=== PATIENT | female | born 1975 | race African-American/Black ===

== ENCOUNTER 2018-04-27 13:09 | Inpatient (IN) | payer OTHER ==
[2018-04-27 14:11] VITALS: BMI 31.3
--- NOTE | 2018-04-27 18:27 | HP ---
CIWA Score - CIWA Score Nausea/Vomitin-Mild Nausea/No Vomiting Muscle Tremors: 2 Anxiety: 2 Agitation: 1-Slight > Activity Paroxysmal Sweats: 1-Minimal Palms Moist Orientation: 0-Oriented Tacttile Disturbances: 2-Mild Itch/Numbness/Burn Auditory Disturbances: 0-None Visual Disturbances: 0-None Headache: 3-Moderate CIWA-Ar Total Score: [address] [facility] - HPI Chief Complaint: ETOH withdrawal symptoms. Allergies/Adverse Reactions: Allergies Allergy/AdvReac Type Severity Reaction Status Date / Time seafood Allergy Intermediate Hives Uncoded 04/27/18 17:05 History of Present Illness: Patient presents for ETOH withdrawal symptoms. Patient started drinking at age 19. Last drink was this morning. Drinks 1 pint and 1/2 pack of beer daily. Denies hx of seizures. Patient also sniffs cocaine. 1-2 bags weekly. Last time she sniffed was one week ago. PMH includes HTN and Bipolar disorder. Last detox attempt was here at [facility] 2015. Denies SI/HI and suicide attempts. Exam Limitations: No Limitations - Ebola screening Have you traveled outside of the country in the last 21 days: No Have you had contact with anyone from an Ebola affected area: No Have you been sick,other than usual withdrawal symptoms: No Do you have a fever: No - Review of Systems Constitutional: Chills, Night Sweats, Changes in sleep EENT: denies: Blurred Vision, Recent change in vision, Throat Pain Respiratory: denies: Cough, Shortness of Breath Cardiac: denies: Chest Pain, Edema, Lightheadedness GI: reports: Diarrhea, Nausea, Poor Appetite, Poor Fluid Intake : reports: Frequency. denies: Flank Pain Musculoskeletal: reports: Joint Pain. denies: Muscle Pain Integumentary: denies: Change in Color, Flushing Neuro: reports: Headache, Tremors Endocrine: denies: Excessive Sweating, Flushing Hematology: denies: Anemia Psychiatric: reports: Orientated x3, Anxious, Depressed Patient History - Patient Medical History Hx Anemia: No Hx Asthma: Yes (Pt is MDI) Hx Chronic Obstructive Pulmonary Disease (COPD): No Hx Cancer: No Hx Cardiac Disorders: No Hx Congestive Heart Failure: No Hx Hypertension: No Hx Hypercholesterolemia: No Hx Pacemaker: No HX Cerebrovascular Accident: No Hx Seizures: No Hx Dementia: No Hx Diabetes: No Hx Gastrointestinal Disorders: No Hx Liver Disease: No Hx Genitourinary Disorders: No Hx Sexually Transmitted Disorders: No Hx Renal Disease (ESRD): No Hx Thyroid Disease: No Hx Human Immunodeficiency Virus (HIV): No Hx Hepatitis C: No Hx Depression: No Hx Suicide Attempt: No Hx Bipolar Disorder: Yes Hx Schizophrenia: Yes - Patient Surgical History Past Surgical History: Yes Hx Neurologic Surgery: No Hx Cataract Extraction: No Hx Cardiac Surgery: No Hx Lung Surgery: No Hx Breast Surgery: No Hx Breast Biopsy: No Hx Abdominal Surgery: No Hx Appendectomy: No Hx Cholecystectomy: No Hx Genitourinary Surgery: No Hx Section: Yes (1994) Hx Orthopedic Surgery: No Hx Hysterectomy: No Anesthesia Reaction: No - PPD History Previous Implant?: Yes Documented Results: Negative w/o proof Date: 02/28/16 PPD to be Administered?: Yes - Reproductive History Last Menstrual Period: 04/25/18 Patient : No - Smoking Cessation Smoking history: Former smoker Have you smoked in the past 12 months: No Aproximately how many cigarettes per day: 0 If you are a former smoker, when did you quit?: WHEN SHE WAS 20 YRS. OLD Hx Chewing Tobacco Use: No Initiated information on smoking cessation: No - Substance & Tx. History Hx Alcohol Use: Yes Hx Substance Use: Yes Substance Use Type: Alcohol, Cocaine Hx Substance Use Treatment: Yes - Substances Abused Alcohol Route: Oral Frequency: Daily Amount used: Beer 3 cans, Vodka 1/2 pint Age of first use: 19 Date of Last Use: 04/27/18 Cocaine Route: Inhalation Frequency: 1-2 times per week Amount used: $20 Age of first use: 39 Date of Last Use: 04/23/18 Family Disease History - Family Disease History Family Disease History: Heart Disease: Father, Mother Admission Physical Exam [facility] - Vital Signs Vital Signs: Vital Signs - 24 hr 04/27/18 14:10 Temperature 97 F L Pulse Rate 120 H Respiratory 17 Rate Blood Pressure 138/84 - Physical General Appearance: Yes: No Apparent Distress, Nourished, Appropriately Dressed , Irritable, Anxious HEENTM: Yes: EOMI, Hearing grossly Normal, Normal ENT Inspection, Normocephalic , Normal Voice, SHEFALI, Pharynx Normal Respiratory: Yes: Chest Non-Tender, Lungs Clear, Normal Breath Sounds, No Respiratory Distress, No Accessory Muscle Use Neck: Yes: No masses,lesions,Nodules, Supple Breast: Yes: Breast Exam Deferred Cardiology: Yes: Regular Rhythm, Regular Rate, S1, S2 Abdominal: Yes: Normal Bowel Sounds, Non Tender, Soft Genitourinary: Yes: Frequency Back: Yes: Normal Inspection. No: Muscle Spasm Musculoskeletal: Yes: full range of Motion, Gait Steady, Joint Stiffness Extremities: Yes: Normal Inspection, Normal Range of Motion, Non-Tender, Tremors Neurological: Yes: bedspring assembler II-XII NML intact, Fully Oriented, Alert, Motor Strength 5/5, Depressed Affect Integumentary: Yes: Normal Color, Warm, Moist Lymphatic: Yes: Within Normal Limits - Diagnostic (1) HTN (hypertension) Current Visit: Yes Status: Acute Qualifiers: Hypertension type: essential hypertension Qualified Code(s): I10 - Essential (primary) hypertension (2) Alcohol dependence with uncomplicated withdrawal Current Visit: Yes Status: Acute (3) Paranoid schizophrenia Current Visit: Yes Status: Chronic (4) Bipolar disorder Current Visit: Yes Status: Chronic Cleared for Admission [facility] - Detox or Rehab [facility] Level of Care: Medically Managed Detox Regimen/Protocol: Librium [facility] Breath Alcohol Content Breath Alcohol Content: 0.015 Urine Pregancy Test - Result Urine Test Results: Negative- NO Line Present Urine Drug Screen - Results Drug Screen Negative: No Urine Drug Screen Results: JESSIE-Cocaine, TCA-Tricyclic Antidepress
[2018-04-27] MEDS ORDERED: chlordiazePOXIDE HCL 25 MG CAPSULE PO PRN (18:32)
[2018-04-27] MEDS ORDERED: ALBUTEROL SO4 8 GM HFA INHALER IH PRN (18:32)
[2018-04-27] MEDS ORDERED: P-EPHED 60MG/TRIPROLIDI 2.5MG TABLET PO PRN (18:33)
[2018-04-27] MEDS ORDERED: hydrOXYzine PAMOATE 50 MG CAPSULE (FP) PO PRN (18:33)
[2018-04-27] MEDS ORDERED: MENTHOL/PHENOL 1 EACH UD MM PRN (18:33)
[2018-04-27] MEDS ORDERED: guaiFENesin/D-METHORPHAN HB 10 ML UNIT-DOSE CUPS PO PRN (18:33)
[2018-04-27] MEDS ORDERED: MAGNESIUM HYDROX 2400MG/30ML ORAL SUSPENSION 30 ML CUP PO PRN (18:33)
[2018-04-27] MEDS ORDERED: MAGNESIUM CITRATE 300 ML BOTTLE PO PRN (18:33)
[2018-04-27] MEDS ORDERED: MAG HYDROX/AL HYDROX/SIMETH 30 ML UNIT-DOSE CUP PO PRN (18:33)
[2018-04-27] MEDS ORDERED: MELATONIN 5 MG TABLETS PO PRN (22:00)
[2018-04-27] MEDS: chlordiazePOXIDE HCL 25 MG CAPSULE PO SCH (22:20)
[2018-04-27] MEDS: THIAMINE HCL 100 MG TABLET (FP) PO SCH (22:20)
[2018-04-28 01:11] LABS: URINE APPEARANCE CLOUDY; URINE GLUCOSE (UA) NEGATIVE (NEGATIVE); URINE KETONE TRACE (NEGATIVE); URINE LEUK ESTERASE NEGATIVE (NEGATIVE); URINE NITRITE POSITIVE (NEGATIVE)
[2018-04-28 01:27] LABS: URINE COLOR DK YELLOW; URINE PROTEIN 2+ (NEGATIVE)
[2018-04-28 01:33] LABS: EPI CELLS MANY /HPF (FEW); URINE HYALINE CAST 269 /lpf; URINE MUCUS MANY
[2018-04-28] MEDS: chlordiazePOXIDE HCL 25 MG CAPSULE PO SCH ×4 (05:26→23:10)
--- NOTE | 2018-04-28 08:54 | CONSULT ---
[facility] Psychiatric Consult - Data Date of interview: 04/28/18 Admission source: [facility] Identifying data: This is a 42 years old female with history of Schizophrenia, psychiatric hospitalizations history, is here due to Alcohol withdrawal symptoms , seeking for detox Substance Abuse History: Smoking history: Former smoker. Have you smoked in the past 12 months: No. Aproximately how many cigarettes per day: 0. If you are a former smoker, when did you quit?: WHEN SHE WAS 20 YRS. OLD. Hx Chewing Tobacco Use: No. Initiated information on smoking cessation: No. - Substance & Tx. History. Hx Alcohol Use: Yes. Hx Substance Use: Yes. Substance Use Type : Alcohol, Cocaine. Hx Substance Use Treatment: Yes. - Substances Abused. Alcohol. Route: Oral. Frequency: Daily. Amount used: Beer 3 cans, Vodka 1/2 pint. Age of first use: 19. Date of Last Use: 04/27/18. Cocaine. Route: Inhalation. Frequency: 1-2 times per week. Amount used: $20. Age of first use : 39. Date of Last Use: 04/23/18 Medical History: HTN, Asthma Psychiatric History: Patient reports history of Schizophrenia, reports most recent psychiatric admission for safety on 2 years ago at [facility]. Current medications are: Seroquel 200mg po bid. Risperdal 2mg poqd Physical/Sexual Abuse/Trauma History: Denies Additional Comment: Seroquel 200mg po bid. Risperdal 2mg poqd Mental Status Exam - Mental Status Exam Alert and Oriented to: Person Cognitive Function: Fair Patient Appearance: Unkempt Mood: Suspicious Affect: Mood Congruent Patient Behavior: Cooperative Speech Pattern: Delayed Voice Loudness: Mildly Soft/Quiet Thought Process: Goal Oriented Thought Disorder: Being Controlled Hallucinations: Denies Suicidal Ideation: Denies Homicidal Ideation: Denies Insight/Judgement: Fair Sleep: Difficulty falling asleep Appetite: Weight gain Muscle strength/Tone: Normal Gait/Station: Normal Additional Comments: Seroquel 200mg po bid. Risperdal 2mg poqd Psychiatric Findings - Problem List (Quinn 1, 2,3) (1) Alcohol dependence with uncomplicated withdrawal Current Visit: Yes Status: Acute (2) Bipolar disorder Current Visit: Yes Status: Chronic (3) Paranoid schizophrenia Current Visit: Yes Status: Chronic (4) Alcohol dependence Current Visit: No Status: Active (5) Paranoid schizophrenia, subchronic condition Current Visit: No Status: Acute (6) Asthma Current Visit: No Status: Chronic - Initial Treatment Plan Initial Treatment Plan: Seroquel 200mg po bid. Risperdal 2mg poqd
--- NOTE | 2018-04-28 09:09 | PN ---
[facility] CIWA - CIWA Score Nausea/Vomitin-Mild Nausea/No Vomiting Muscle Tremors: 4-Moderate,w/Arms Extend Anxiety: 4-Mod. Anxious/Guarded Agitation: 3 Paroxysmal Sweats: 1-Minimal Palms Moist Orientation: 0-Oriented Tacttile Disturbances: 0-None Auditory Disturbances: 0-None Visual Disturbances: 0-None Headache: 0-None Present CIWA-Ar Total Score: 13 BHS Progress Note (SOAP) Subjective: diarrhea sweat tremor anxiety restlessness trouble sleep at night Objective: 04/28/18 09:10 Vital Signs Temperature 96.7 F L 04/28/18 06:29 Pulse Rate 99 H 04/28/18 06:29 Respiratory Rate 18 04/28/18 06:29 Blood Pressure 122/90 04/28/18 06:29 O2 Sat by Pulse Oximetry (%) Laboratory Last Values Urine Color Dk yellow 04/27/18 22:40 Urine Appearance Cloudy 04/27/18 22:40 Urine pH 5.0 (5.0-8.0) 04/27/18 22:40 Ur Specific [place] 1.029 (1.001-1.035) 04/27/18 22:40 Urine Protein 2+ (NEGATIVE) H 04/27/18 22:40 Urine Glucose (UA) Negative (NEGATIVE) 04/27/18 22:40 Urine Ketones Trace (NEGATIVE) H 04/27/18 22:40 Urine Blood 2+ (NEGATIVE) H 04/27/18 22:40 Urine Nitrite Positive (NEGATIVE) 04/27/18 22:40 Urine Bilirubin 4.0 (<2.0 mg/dL) 04/27/18 22:40 Urine Urobilinogen 2.0 mg/dL (0.2-1.0) H 04/27/18 22:40 Ur Leukocyte Esterase Negative (NEGATIVE) 04/27/18 22:40 Urine WBC (Auto) 8 /hpf (3-5) 04/27/18 22:40 Urine RBC (Auto) 15 /hpf (0-3) 04/27/18 22:40 Ur Epithelial Cells Many /HPF (FEW) 04/27/18 22:40 Hyaline Casts 269 /lpf 04/27/18 22:40 Urine Mucus Many 04/27/18 22:40 lab noted Assessment: 04/28/18 09:10 withdrawal sx Plan: continue detox increase oral fluid personal hygiene
[2018-04-28] MEDS ORDERED: LURASIDONE HCL 40 MG TABLET PO SCH (10:00)
[2018-04-28] MEDS: PRENATAL VITAMINS W/ FOLIC ACID TABLET (FP) PO SCH (10:16)
[2018-04-28] MEDS: amLODIPine BESYLATE 5 MG TABLET (FP) PO SCH (10:16)
[2018-04-28] MEDS: LOPERAMIDE HCL 2 MG CAPSULE PO PRN (10:16)
[2018-04-28 10:51] LABS: HEMOGLOBIN 12.2 GM/dL (10.7-15.3); MCH 32.1 pg (25.7-33.7); MEAN CELL VOLUME 94.3 fl (80-96); MEAN PLT VOLUME 7.7 fl (7.5-11.1); PLATELET COUNT 284 K/MM3 (134-434); RBC 3.81 M/mm3 (3.60-5.2); RDW 19.7 % (11.6-15.6); WHITE BLOOD COUNT 5.2 K/mm3 (4.0-10.0)
[2018-04-28 11:31] LABS: CHLORIDE 100 mmol/L (98-107); POTASSIUM 3.4 mmol/L (3.5-5.1); SODIUM 132 mmol/L (136-145)
[2018-04-28 11:38] LABS: ALK PHOS 89 U/L (45-117); ANION GAP 12 MMOL/L (8-16); BILIRUBIN,TOTAL 1.2 mg/dL (0.2-1.0); BLOOD UREA NITROGEN 8 mg/dL (7-18); CALCIUM 9.5 mg/dL (8.5-10.1); CO2 20 mmol/L (21-32); CREATININE 1.6 mg/dL (0.55-1.02); GLUCOSE,RANDOM 108 mg/dL (74-106); SGOT/AST 68 U/L (15-37); SGPT/ALT 34 U/L (12-78); TOT PROT 8.7 g/dl (6.4-8.2)
--- NOTE | 2018-04-28 12:32 | EKG ---
Test Reason : Blood Pressure : / mmHG Vent. Rate : 116 BPM Atrial Rate : 116 BPM P-R Int : 126 ms QRS Dur : 082 ms QT Int : 302 ms P-R-T Axes : 056 048 041 degrees QTc Int : 419 ms SINUS TACHYCARDIA OTHERWISE NORMAL ECG NO PREVIOUS ECGS AVAILABLE Confirmed by NORY TAYLOR, SHIN ([id number]) on 04/28/2018 12:31:59 PM Referred By: Confirmed By:SHIN CUETO MD
[2018-04-28] MEDS: risperiDONE 2 MG TABLET PO SCH (12:35)
[2018-04-28] MEDS: ACETAMINOPHEN 325 MG TABLET (FP) PO PRN (17:31)
[2018-04-28] MEDS ORDERED: QUEtiapine FUMARATE 100 MG TABLET (FP) PO SCH (22:00)
[2018-04-28] MEDS ORDERED: traZODone HCL 50 MG TABLET (FP) PO SCH (22:00)
[2018-04-28] MEDS: QUEtiapine FUMARATE 200 MG TABLET PO SCH (23:11)
[2018-04-28] MEDS: THIAMINE HCL 100 MG TABLET (FP) PO SCH (23:12)
[2018-04-29] MEDS: chlordiazePOXIDE HCL 25 MG CAPSULE PO SCH ×3 (06:25→17:48)
[2018-04-29] MEDS: QUEtiapine FUMARATE 200 MG TABLET PO SCH ×2 (06:26→22:14)
[2018-04-29] MEDS: PRENATAL VITAMINS W/ FOLIC ACID TABLET (FP) PO SCH (10:47)
[2018-04-29] MEDS: risperiDONE 2 MG TABLET PO SCH (10:47)
[2018-04-29] MEDS: amLODIPine BESYLATE 5 MG TABLET (FP) PO SCH (10:47)
[2018-04-29] MEDS: LOPERAMIDE HCL 2 MG CAPSULE PO PRN (14:13)
[2018-04-29] MEDS: metroNIDAZOLE 0.75% VAGINAL GEL 70 GM TUBE VG SCH (22:08)
[2018-04-29] MEDS: chlordiazePOXIDE 5 MG CAPSULE PO SCH (22:11)
[2018-04-29] MEDS: THIAMINE HCL 100 MG TABLET (FP) PO SCH (22:13)
--- NOTE | 2018-04-29 23:04 | PN ---
[facility] CIWA - CIWA Score Nausea/Vomitin-Mild Nausea/No Vomiting Muscle Tremors: 4-Moderate,w/Arms Extend Anxiety: 1-Mildly Anxious Agitation: 1-Slight > Activity Paroxysmal Sweats: No Perspiration Orientation: 0-Oriented Tacttile Disturbances: 0-None Auditory Disturbances: 0-None Visual Disturbances: 0-None Headache: 0-None Present CIWA-Ar Total Score: 7 S Progress Note (SOAP) Subjective: c/o mild nausea w/o vomiting,shakes and anxiety. Also c/o whitish vaginal discharge x 1 day. States has a hx of bacterial vaginosis. Objective: A & O x 3. Tremors of hands noted. Whitish, foul smelling vag discharge. Vital Signs - 24 hr 04/29/18 04/29/18 04/29/18 00:02 03:30 08:41 Temperature 98.1 F 97.2 F L Pulse Rate 111 H 110 H Respiratory 20 18 20 Rate Blood Pressure 122/92 137/73 04/29/18 04/29/18 04/29/18 09:03 14:01 17:42 Temperature 98.2 F 97.5 F L 98.1 F Pulse Rate 108 H 111 H 100 H Respiratory 18 19 18 Rate Blood Pressure 129/81 133/87 121/82 04/29/18 22:43 Temperature 97.5 F L Pulse Rate 99 H Respiratory 18 Rate Blood Pressure 125/74 Laboratory Last Values WBC 5.2 K/mm3 (4.0-10.0) 04/28/18 07:30 RBC 3.81 M/mm3 (3.60-5.2) 04/28/18 07:30 Hgb 12.2 GM/dL (10.7-15.3) 04/28/18 07:30 Hct 36.0 % (32.4-45.2) D 04/28/18 07:30 MCV 94.3 fl (80-96) 04/28/18 07:30 MCH 32.1 pg (25.7-33.7) D 04/28/18 07:30 MCHC 34.0 g/dl (32.0-36.0) 04/28/18 07:30 RDW 19.7 % (11.6-15.6) H 04/28/18 07:30 Plt Count 284 K/MM3 (134-434) 04/28/18 07:30 MPV 7.7 fl (7.5-11.1) 04/28/18 07:30 Sodium 132 mmol/L (136-145) L 04/28/18 07:30 Potassium 3.4 mmol/L (3.5-5.1) L 04/28/18 07:30 Chloride 100 mmol/L (98-107) 04/28/18 07:30 Carbon Dioxide 20 mmol/L (21-32) L 04/28/18 07:30 Anion Gap 12 MMOL/L (8-16) 04/28/18 07:30 BUN 8 mg/dL (7-18) 04/28/18 07:30 Creatinine 1.6 mg/dL (0.55-1.02) H 04/28/18 07:30 Creat Clearance w eGFR 35.52 (>60) 04/28/18 07:30 Random Glucose 108 mg/dL (74-106) H 04/28/18 07:30 Calcium 9.5 mg/dL (8.5-10.1) 04/28/18 07:30 Total Bilirubin 1.2 mg/dL (0.2-1.0) H 04/28/18 07:30 AST 68 U/L (15-37) H 04/28/18 07:30 ALT 34 U/L (12-78) 04/28/18 07:30 Alkaline Phosphatase 89 U/L (45-117) 04/28/18 07:30 Total Protein 8.7 g/dl (6.4-8.2) H 04/28/18 07:30 Albumin 4.0 g/dl (3.4-5.0) 04/28/18 07:30 Urine Color Dk yellow 04/27/18 22:40 Urine Appearance Cloudy 04/27/18 22:40 Urine pH 5.0 (5.0-8.0) 04/27/18 22:40 Ur Specific [place] 1.029 (1.001-1.035) 04/27/18 22:40 Urine Protein 2+ (NEGATIVE) H 04/27/18 22:40 Urine Glucose (UA) Negative (NEGATIVE) 04/27/18 22:40 Urine Ketones Trace (NEGATIVE) H 04/27/18 22:40 Urine Blood 2+ (NEGATIVE) H 04/27/18 22:40 Urine Nitrite Positive (NEGATIVE) 04/27/18 22:40 Urine Bilirubin 4.0 (<2.0 mg/dL) 04/27/18 22:40 Urine Urobilinogen 2.0 mg/dL (0.2-1.0) H 04/27/18 22:40 Ur Leukocyte Esterase Negative (NEGATIVE) 04/27/18 22:40 Urine WBC (Auto) 8 /hpf (3-5) 04/27/18 22:40 Urine RBC (Auto) 15 /hpf (0-3) 04/27/18 22:40 Ur Epithelial Cells Many /HPF (FEW) 04/27/18 22:40 Hyaline Casts 269 /lpf 04/27/18 22:40 Urine Mucus Many 04/27/18 22:40 RPR Titer Nonreactive (NONREACTIVE) 04/28/18 07:30 HIV 1&2 Antibody Screen Negative 04/28/18 09:30 HIV P24 Antigen Negative 04/28/18 09:30 Labs reviewed. Assessment: Alcohol withdrawal symptoms. Bacterial vaginosis Plan: Continue detox Prescribe metronidzole vaginal cream.
[2018-04-30] MEDS: chlordiazePOXIDE 5 MG CAPSULE PO SCH ×3 (05:41→17:44)
[2018-04-30] MEDS: LOPERAMIDE HCL 2 MG CAPSULE PO PRN (05:43)
[2018-04-30] MEDS: QUEtiapine FUMARATE 200 MG TABLET PO SCH ×2 (07:37→22:09)
[2018-04-30] MEDS: ACETAMINOPHEN 325 MG TABLET (FP) PO PRN ×2 (10:28→14:04)
[2018-04-30] MEDS: risperiDONE 2 MG TABLET PO SCH (10:28)
[2018-04-30] MEDS: amLODIPine BESYLATE 5 MG TABLET (FP) PO SCH (10:28)
[2018-04-30] MEDS: PRENATAL VITAMINS W/ FOLIC ACID TABLET (FP) PO SCH (10:28)
[2018-04-30] MEDS: IBUPROFEN 400 MG TABLET (FP) PO PRN ×2 (16:37→22:09)
[2018-04-30] MEDS: POTASSIUM CHLORIDE TABS 20 MEQ TABLET.ER (FP) PO SCH (17:44)
--- NOTE | 2018-04-30 17:57 | PN ---
S Progress Note (SOAP) Subjective: Patient states cut self while shaving perineum area. States bleed a little for a short period of time. States feeling ok. Now/drawal symptoms except for a little anxiety. Objective: Superficial abrasion (L) inguinal area approx 1mm x 3mm. No bleeding present at this time. Noted an elevated papular/follicular indurated lesion approx 1 cm circular and slightly tender to touch. No increased warmth or erythema. Vital Signs 04/30/18 04/30/18 13:42 17:30 Temperature 96.8 F L 97.0 F L Pulse Rate 100 H 90 Respiratory 18 20 Rate Blood Pressure 122/87 137/80 Laboratory Last Values WBC 5.2 K/mm3 (4.0-10.0) 04/28/18 07:30 RBC 3.81 M/mm3 (3.60-5.2) 04/28/18 07:30 Hgb 12.2 GM/dL (10.7-15.3) 04/28/18 07:30 Hct 36.0 % (32.4-45.2) D 04/28/18 07:30 MCV 94.3 fl (80-96) 04/28/18 07:30 MCH 32.1 pg (25.7-33.7) D 04/28/18 07:30 MCHC 34.0 g/dl (32.0-36.0) 04/28/18 07:30 RDW 19.7 % (11.6-15.6) H 04/28/18 07:30 Plt Count 284 K/MM3 (134-434) 04/28/18 07:30 MPV 7.7 fl (7.5-11.1) 04/28/18 07:30 Sodium 132 mmol/L (136-145) L 04/28/18 07:30 Potassium 3.4 mmol/L (3.5-5.1) L 04/28/18 07:30 Chloride 100 mmol/L (98-107) 04/28/18 07:30 Carbon Dioxide 20 mmol/L (21-32) L 04/28/18 07:30 Anion Gap 12 MMOL/L (8-16) 04/28/18 07:30 BUN 8 mg/dL (7-18) 04/28/18 07:30 Creatinine 1.6 mg/dL (0.55-1.02) H 04/28/18 07:30 Creat Clearance w eGFR 35.52 (>60) 04/28/18 07:30 Random Glucose 108 mg/dL (74-106) H 04/28/18 07:30 Calcium 9.5 mg/dL (8.5-10.1) 04/28/18 07:30 Total Bilirubin 1.2 mg/dL (0.2-1.0) H 04/28/18 07:30 AST 68 U/L (15-37) H 04/28/18 07:30 ALT 34 U/L (12-78) 04/28/18 07:30 Alkaline Phosphatase 89 U/L (45-117) 04/28/18 07:30 Total Protein 8.7 g/dl (6.4-8.2) H 04/28/18 07:30 Albumin 4.0 g/dl (3.4-5.0) 04/28/18 07:30 Urine Color Dk yellow 04/27/18 22:40 Urine Appearance Cloudy 04/27/18 22:40 Urine pH 5.0 (5.0-8.0) 04/27/18 22:40 Ur Specific [place] 1.029 (1.001-1.035) 04/27/18 22:40 Urine Protein 2+ (NEGATIVE) H 04/27/18 22:40 Urine Glucose (UA) Negative (NEGATIVE) 04/27/18 22:40 Urine Ketones Trace (NEGATIVE) H 04/27/18 22:40 Urine Blood 2+ (NEGATIVE) H 04/27/18 22:40 Urine Nitrite Positive (NEGATIVE) 04/27/18 22:40 Urine Bilirubin 4.0 (<2.0 mg/dL) 04/27/18 22:40 Urine Urobilinogen 2.0 mg/dL (0.2-1.0) H 04/27/18 22:40 Ur Leukocyte Esterase Negative (NEGATIVE) 04/27/18 22:40 Urine WBC (Auto) 8 /hpf (3-5) 04/27/18 22:40 Urine RBC (Auto) 15 /hpf (0-3) 04/27/18 22:40 Ur Epithelial Cells Many /HPF (FEW) 04/27/18 22:40 Hyaline Casts 269 /lpf 04/27/18 22:40 Urine Mucus Many 04/27/18 22:40 RPR Titer Nonreactive (NONREACTIVE) 04/28/18 07:30 HIV 1&2 Antibody Screen Negative 04/28/18 09:30 HIV P24 Antigen Negative 04/28/18 09:30 Labs reviewed. Assessment: Withdrawal symptoms residing. Superficial inguinal laceration Follicular lesion Plan: Continue detox. Bacitracin to perineum follicular lesion and inguinal laceration BID. Warm soaks to follicular lesion QID Reviewed labs w/ patient.
[2018-04-30] MEDS: chlordiazePOXIDE HCL 10 MG CAPSULE PO SCH (22:09)
[2018-04-30] MEDS: BACITRACIN 0.9 GM PACKET TP SCH (22:09)
[2018-04-30] MEDS: THIAMINE HCL 100 MG TABLET (FP) PO SCH (22:09)
[2018-04-30] MEDS: metroNIDAZOLE 0.75% VAGINAL GEL 70 GM TUBE VG SCH (22:11)
[2018-05-01] MEDS: IBUPROFEN 400 MG TABLET (FP) PO PRN (04:26)
[2018-05-01] MEDS: chlordiazePOXIDE HCL 10 MG CAPSULE PO SCH (05:32)
[2018-05-01] MEDS: QUEtiapine FUMARATE 200 MG TABLET PO SCH (06:11)
[2018-05-01 06:57] VITALS: BP 113/89; PULSE 118; TEMP 96.1
--- NOTE | 2018-05-01 08:55 | DS ---
[facility] Detox Discharge Summary Admission Date: 04/27/18 Discharge Date: 05/01/18 - History Present History: Alcohol Dependence Additional Comments: Patient medically Stable. Patient to follow up in 1 - 2 weeks with primary care provider. Patient to follow up with after care referrals. - Physical Exam Results Vital Signs: Vital Signs Temperature 96.1 F L 05/01/18 06:57 Pulse Rate 118 H 05/01/18 06:57 Respiratory Rate 18 05/01/18 06:57 Blood Pressure 113/89 05/01/18 06:57 O2 Sat by Pulse Oximetry (%) Pertinent Admission Physical Exam Findings: Vital Signs Temperature 96.1 F L 05/01/18 06:57 Pulse Rate 118 H 05/01/18 06:57 Respiratory Rate 18 05/01/18 06:57 Blood Pressure 113/89 05/01/18 06:57 O2 Sat by Pulse Oximetry (%) Laboratory Last Values WBC 5.2 K/mm3 (4.0-10.0) 04/28/18 07:30 RBC 3.81 M/mm3 (3.60-5.2) 04/28/18 07:30 Hgb 12.2 GM/dL (10.7-15.3) 04/28/18 07:30 Hct 36.0 % (32.4-45.2) D 04/28/18 07:30 MCV 94.3 fl (80-96) 04/28/18 07:30 MCH 32.1 pg (25.7-33.7) D 04/28/18 07:30 MCHC 34.0 g/dl (32.0-36.0) 04/28/18 07:30 RDW 19.7 % (11.6-15.6) H 04/28/18 07:30 Plt Count 284 K/MM3 (134-434) 04/28/18 07:30 MPV 7.7 fl (7.5-11.1) 04/28/18 07:30 Sodium 132 mmol/L (136-145) L 04/28/18 07:30 Potassium 3.4 mmol/L (3.5-5.1) L 04/28/18 07:30 Chloride 100 mmol/L (98-107) 04/28/18 07:30 Carbon Dioxide 20 mmol/L (21-32) L 04/28/18 07:30 Anion Gap 12 MMOL/L (8-16) 04/28/18 07:30 BUN 8 mg/dL (7-18) 04/28/18 07:30 Creatinine 1.6 mg/dL (0.55-1.02) H 04/28/18 07:30 Creat Clearance w eGFR 35.52 (>60) 04/28/18 07:30 Random Glucose 108 mg/dL (74-106) H 04/28/18 07:30 Calcium 9.5 mg/dL (8.5-10.1) 04/28/18 07:30 Total Bilirubin 1.2 mg/dL (0.2-1.0) H 04/28/18 07:30 AST 68 U/L (15-37) H 04/28/18 07:30 ALT 34 U/L (12-78) 04/28/18 07:30 Alkaline Phosphatase 89 U/L (45-117) 04/28/18 07:30 Total Protein 8.7 g/dl (6.4-8.2) H 04/28/18 07:30 Albumin 4.0 g/dl (3.4-5.0) 04/28/18 07:30 Urine Color Dk yellow 04/27/18 22:40 Urine Appearance Cloudy 04/27/18 22:40 Urine pH 5.0 (5.0-8.0) 04/27/18 22:40 Ur Specific [place] 1.029 (1.001-1.035) 04/27/18 22:40 Urine Protein 2+ (NEGATIVE) H 04/27/18 22:40 Urine Glucose (UA) Negative (NEGATIVE) 04/27/18 22:40 Urine Ketones Trace (NEGATIVE) H 04/27/18 22:40 Urine Blood 2+ (NEGATIVE) H 04/27/18 22:40 Urine Nitrite Positive (NEGATIVE) 04/27/18 22:40 Urine Bilirubin 4.0 (<2.0 mg/dL) 04/27/18 22:40 Urine Urobilinogen 2.0 mg/dL (0.2-1.0) H 04/27/18 22:40 Ur Leukocyte Esterase Negative (NEGATIVE) 04/27/18 22:40 Urine WBC (Auto) 8 /hpf (3-5) 04/27/18 22:40 Urine RBC (Auto) 15 /hpf (0-3) 04/27/18 22:40 Ur Epithelial Cells Many /HPF (FEW) 04/27/18 22:40 Hyaline Casts 269 /lpf 04/27/18 22:40 Urine Mucus Many 04/27/18 22:40 RPR Titer Nonreactive (NONREACTIVE) 04/28/18 07:30 HIV 1&2 Antibody Screen Negative 04/28/18 09:30 HIV P24 Antigen Negative 04/28/18 09:30 - Treatment Hospital Course: Detox Protocol Followed, Detoxed Safely, Responded well, Discharged Condition Good, Rehab Referral Accepted Patient has Accepted a Rehab Referral to: [facility] - Medication Discharge Medications: Ambulatory Orders Quetiapine Fumarate [Seroquel -] 200 mg PO AM 02/27/16 Quetiapine Fumarate [Seroquel] 200 tab PO HS #30 tablet 02/27/16 Risperidone [Risperdal -] 2 mg PO DAILY #30 tablet 02/27/16 Ferrous Sulfate 325 mg PO BID #60 tablet 03/01/16 Albuterol Sulfate Inhaler - [Ventolin Hfa Inhaler -] 1 - 2 inh PO QID 04/27/18 Amlodipine Besylate 5 mg PO DAILY 04/27/18 Quetiapine Fumarate [Seroquel -] 200 mg PO BID #60 tab 04/28/18 Risperidone [Risperdal] 2 mg PO DAILY #30 tablet 04/28/18 Albuterol Sulfate Inhaler - [Ventolin HFA Inhaler -] 2 puff IH QID PRN #1 inhaler 05/01/18 Amlodipine Besylate [Norvasc -] 5 mg PO DAILY #30 tablet 05/01/18 - Diagnosis (1) Alcohol dependence with uncomplicated withdrawal Status: Acute (2) Disorder of the skin and subcutaneous tissue, unspecified Status: Acute (3) HTN (hypertension) Status: Acute Qualifiers: Hypertension type: essential hypertension Qualified Code(s): I10 - Essential (primary) hypertension (4) Asthma Status: Chronic - AMA Did Patient Leave Against Medical Advice: No
[2018-05-01] MEDS: risperiDONE 2 MG TABLET PO SCH (09:24)
[2018-05-01] MEDS: POTASSIUM CHLORIDE TABS 20 MEQ TABLET.ER (FP) PO SCH (09:24)
[2018-05-01] MEDS: amLODIPine BESYLATE 5 MG TABLET (FP) PO SCH (09:24)
[2018-05-01] MEDS: BACITRACIN 0.9 GM PACKET TP SCH (09:25)
== END 2018-05-01 09:27 | disposition home or self-care (01) | DRG 775 ==
LOC: YASAS 13:09 → Y6N 17:41
PROC: HZ2ZZZZ Detoxification Services for Substance Abuse Treatment (ICD-10-PCS; principal; 2018-04-27)
DX: F10.230 Alcohol dependence with withdrawal, uncomplicated (principal); F20.0 Paranoid schizophrenia; F31.9 Bipolar disorder, unspecified; I10 Essential (primary) hypertension; J45.909 Unspecified asthma, uncomplicated; L98.9 Disorder of the skin and subcutaneous tissue, unspecified; N76.0 Acute vaginitis; Z87.891 Personal history of nicotine dependence; Z91.013 Allergy to seafood
CPT/HCPCS: 36415; 80053; 81003; 81015; 85027; 86593; 87389; 93005; 93010